=== PATIENT | female | born 1965 | race Caucasian/White ===

== ENCOUNTER 2025-06-30 19:01 | Emergency (ER) | payer OTHER ==
[~2025-06-30] VITALS: Ht 165.1 cm; Wt 75.0 kg
[2025-06-30] MEDS ORDERED: HYDROmorphone HCL 1 MG/ML SYR IV ONE ×2 (19:30→21:15)
[2025-06-30] MEDS ORDERED: HYDROmorphone HCL 1 MG/ML SYR IV PRN (20:30)
[2025-06-30] MEDS ORDERED: ETOMIDATE 40 MG/20 ML VIAL IV ONE ×2 (21:00→21:15)
[2025-06-30] MEDS ORDERED: HYDROmorphone HCL 1 MG/ML SYR ONE (21:11)
[2025-06-30] MEDS ORDERED: HYDROCODON-ACE1 EA10 PO ×2 (22:58)
[2025-06-30] MEDS ORDERED: HYDROCODONE BIT/ACETAMINOPHEN 5/325 MG 1 TAB HOME.PACK PO ONE (23:00)
[2025-06-30 23:15] VITALS: BP 129/65
[2025-06-30] MEDS ORDERED: ONDANSETRON ODT8 MG PO ×2 (23:19)
[2025-06-30] MEDS ORDERED: ONDANSETRON 4 MG HOME.PACK SL ONE (23:30)
[2025-07-03] MEDS ORDERED: PROGESTERONE100 MG PO ×2 (16:25)
[2025-07-03] MEDS ORDERED: ESTRADIOL1 MG PO ×2 (16:25)
[2025-07-03] MEDS ORDERED: AMLODIPINE-OLM1 EAC2 PO ×2 (16:25)
[2025-07-03] MEDS ORDERED: VITAMIN C500 M4 PO ×2 (16:26)
[2025-07-03] MEDS ORDERED: MAGNESIUM500 MG PO ×2 (16:26)
== END 2025-06-30 23:15 | disposition home or self-care (01) ==
LOC: ED 19:01
DX: S92.331A Displaced fracture of third metatarsal bone, right foot, initial encounter for closed fracture (principal); S92.341A Displaced fracture of fourth metatarsal bone, right foot, initial encounter for closed fracture; S93.124A Dislocation of metatarsophalangeal joint of right lesser toe(s), initial encounter; I10 Essential (primary) hypertension; Z88.5 Allergy status to narcotic agent; W55.12XA Struck by horse, initial encounter
CPT/HCPCS: 28630; 73610; 73630; 73700; 96374; 96375; 96376; 99284-25; A9270; J1171; J2405

== ENCOUNTER 2025-07-05 05:40 | Day surgery (SDC) | payer OTHER ==
[~2025-07-05] VITALS: Ht 165.1 cm; Wt 74.0 kg
--- NOTE | ~2025-07-05 | OR ---
[facility] [address] [place] [address] [place] DATE OF OPERATION: 07/05/2025 SURGEON: Jade Gregory MD PREOPERATIVE DIAGNOSIS: Metatarsophalangeal dislocation second right toe. POSTOPERATIVE DIAGNOSIS: Metatarsophalangeal dislocation second right toe. PROCEDURE PERFORMED: Open reduction, pinning, right second metatarsophalangeal. DIAL MOUNTER: None. ANESTHESIA: General. BLOOD LOSS: Minimal. IMPLANTS: One 1.6 mm K-wire was used. BRIEF HISTORY: Derek is a 59-year-old female who was stepped on by a horse. Dislocated her second MTP joint, fractured the third and fourth metatarsals. Risks and benefits of closed reduction, possible open reduction of the joint were discussed with her after multiple attempts in the ER failed. She understood and wished to proceed. DESCRIPTION OF PROCEDURE: Once consent was obtained, she was taken to the operating room. After adequate anesthesia she was placed on OR table. Multiple attempted closed reductions were made. The proximal phalanx continued to be subluxed dorsally and laterally. At this point, we went ahead and prepped and draped the leg up to a proximal thigh tourniquet. The leg was then exsanguinated using Esmarch bandage. Tourniquet inflated to 250 mmHg. A 2 cm dorsal incision to the MTP joint was taken through skin and subcutaneous tissue. The extensor tendon was carefully retracted and protected. The dorsal capsule was opened and the joint was inspected. There was a small amount of soft tissue laterally however PATIENT NAME: DEREK FISHER OPERATIVE REPORT DATE OF : 69 REPORT #: [id number] PHYSICIAN: JADE GREGORY MD PCP: NO PRIMARY CARE PHYSICIAN REPORT IS CONFIDENTIAL AND NOT TO BE RELEASED WITHOUT AUTHORIZATION [facility] [address] [place], [place] [address] [place] we opened and reduced into position with the [place] elevator. Continued to want to ride laterally and dorsally, so we held it in position and introduced 1.6 K-wire to the lateral side of the proximal phalanx advanced across the joint, holding the MTP joint in a reduced position. The K-wire was cut and bent. The wound was copiously irrigated with normal saline. The dorsal capsule was closed using 3-0 Monocryl. Subcutaneous tissue with 3-0 Monocryl and the skin with 3-0 Stratafix. Wound was sealed with LiquiBand and Steri-Strips. A digital block was then performed. Once this was completed the wound was dressed with Allevyn, gauze and an PENELOPE wrap. She was placed back into a fracture boot. She tolerated the procedure well. All sponge, needle, and instrument counts were correct. Jade Gregory MD BA/DEBRAL /[id number] Copies: ~ PATIENT NAME: DEREK FISHER OPERATIVE REPORT DATE OF : 69 REPORT #: [id number] PHYSICIAN: JADE GREGORY MD PCP: NO PRIMARY CARE PHYSICIAN REPORT IS CONFIDENTIAL AND NOT TO BE RELEASED WITHOUT AUTHORIZATION
[~2025-07-05 05:40] MED LIST: AMLODIPINE-OLM1 EAC2 PO; ESTRADIOL1 MG PO; HYDROCODON-ACE1 EA10 PO; LACTATED RINGER'S 1,000 ML IV SCH; MAGNESIUM500 MG PO; ONDANSETRON ODT8 MG PO; PROGESTERONE100 MG PO; VITAMIN C500 M4 PO
[2025-07-05 06:04] VITALS: BP 127/76
[2025-07-05] MEDS ORDERED: LIDOCAINE HCL 1% 5 ML SDV INJ ONE (07:00)
[2025-07-05] MEDS ORDERED: IBLOOD GLUCOSE TEST STRIP 1 EA TEST VI PRN ×2 (07:00→08:30)
[2025-07-05] MEDS ORDERED: CEFAZOLIN SODIUM 2 GM in SODIUM CHLORIDE 0.9% 100 ML IV SCH (07:00)
[2025-07-05] MEDS ORDERED: LIDOCAINE HCL 2% 5 ML SDV ONE (07:17)
[2025-07-05] MEDS ORDERED: fentaNYL citrate 100 MCG/2 ML VIAL ONE (07:42)
[2025-07-05] MEDS ORDERED: HYDROCODONE/ACETA 7.5/325 TAB PO PRN (08:00)
[2025-07-05] MEDS ORDERED: DEXAMETHASONE SOD PHOS 4 MG/ML VIAL ONE (08:13)
[2025-07-05] MEDS ORDERED: ACETAMINOPHEN 1,000 MG/100 ML VIAL ONE (08:23)
[2025-07-05] MEDS ORDERED: METOCLOPRAMIDE HCL 10 MG/2 ML SDV IV PRN (08:30)
[2025-07-05] MEDS ORDERED: fentaNYL citrate 50 MCG/ML SDV IV PRN (08:30)
[2025-07-05] MEDS ORDERED: MIDAZOLAM HCL 2 MG/2 ML VIAL IV PRN (08:30)
[2025-07-05] MEDS ORDERED: MORPHINE SULFATE 10 MG/ML VIAL IV PRN (08:30)
[2025-07-05] MEDS ORDERED: NALOXONE HCL 0.4 MG SYR IV PRN (08:30)
[2025-07-05] MEDS ORDERED: GLYCOPYRROLATE 1 MG/5 ML MDV ONE (08:34)
[2025-07-05] MEDS ORDERED: BUPIVACAINE HCL 0.25% 50 ML MDV ONE (08:45)
--- NOTE | 2025-07-05 08:51 | NUR ---
VISITED DURING SPIRITUAL CARE ROUNDS. PT STATED NERVOUS BUT APPEARS TO BE COPING WELL; SUPPORTED BY MOTHER IN ROOM. NO IMMEDIATE NEEDS. GROUP WORK PROGRAM DIRECTOR PROVIDED SUPPORTIVE PRESENCE, HOSPITALITY, PRAYER. PT AND MOTHER EXPRESSED GRATITUDE.
[2025-07-05] MEDS ORDERED: HYDROCODON-ACE1 EA11 PO ×2 (09:00)
--- NOTE | 2025-07-05 09:10 | NUR ---
07/05/25 0910 Lianna Olivera LE 0900: PT ARRIVES TO PACU WITH ORAL AIRWAY IN PLACE. REPROT RECEIVED FROM HANSARD REPORTER AND JIG MAKER. 2ND RIGTH TOE IS WHITE, NO CAP REFILL, WARM TO TOUCH. IT IS WAS UNDER PRESSURE, ADJUSTED THE TOE AND IT PINKED RIGHT UP WITH BRISK CAP REFILL. DR. SANDOVAL MADE AWARE. LE 0906: PT AROUSES, ORAL AIRWAY IS REMOVED. SHE DENIES PAIN AND NAUSEA.
[2025-07-05 09:31] VITALS: BP 169/89
[2025-07-05] MEDS ORDERED: SEVOFLURANE 250 ML BTL INH ONE (10:02)
[2025-07-05 10:36] VITALS: BP 129/74
[2025-07-05 11:32] VITALS: BP 129/67
--- NOTE | 2025-07-05 12:13 | NUR ---
ARJUN 0929-PT BACK TO ROOM FROM PACU ON RA. RECEIVED REPORT FROM GINI FERRERA. PT IS AWAKE. RESP EVEN AND UNLABORED. PT IS TEARY. PT STATES RIGHT FOOT IS ACHY AND FEELS PRESSURE. PT TAKING SIPS OF WATER. DECLINES A SNACK AT THIS TIME. NO OTHER NEEDS AT THIS TIME. MOM AT BEDSIDE. CALL LIGHT WITHIN REACH.
--- NOTE | 2025-07-05 12:14 | NUR ---
LE 1037-PT IS AWAKE. RESP EVEN AND UNLABORED. PT IS NO LONGER TEARY. PT STATES RT FOOT IS ACHY AND FEELS PRESSURE. PT TAKING SIPS OF WATER. LE 1045-PT UP TO BEDSIDE COMMODE WITH THE HELP OF 2 RN ASSIT. PT ABLE TO VOID. LE 1050-PT BACK TO BED. NO OTHER NEEDS AT THIS TIME. CALL LIGHT WITHIN REACH. MOM AT BEDSIDE.
--- NOTE | 2025-07-05 12:25 | NUR ---
LE 1132-PT IS AWAKE. RESP EVEN AND UNLABORED. PT HAS FOOT ELEVATED WITH PILLOW AND ICE PACK IN PLACE. PT TAKING SIPS OF WATER AND EATING APPLESAUCE. PT IS READY TO GO HOME. PT WILL STARTE GETTING DRESSED WITH THE HELP OF HER MOM. CALL LIGHT WITHIN REACH.
--- NOTE | 2025-07-05 12:28 | NUR ---
ARJUN 1150-WENT OVER DISCHARGE INSTRUCTIONS WITH PT AND HER MOM. WENT OVER POSTOP MEDICATIONS. ALL QUESTIONS ANSWERED. PT WILL USE A SCOOTER WHILE SHE STAYS IN [place]. HER MOM HAS CALLED [employer] AND WILL GO PICK ONE UP. PT PLANS TO FOLLOW WITH HER DR IN [place] ON 07/13/25 AT 1100. BOTH OFFICES WILL BE COMMUNICATING RE FOLLOWUP CARE PER PT.
== END 2025-07-05 11:55 | disposition home or self-care (01) ==
LOC: DS 05:40
PROVIDERS: ATTEND Specialist
PROC: 0SSM04Z Reposition Right Metatarsal-Phalangeal Joint with Internal Fixation Device, Open Approach (ICD-10-PCS; principal; 2025-07-05 07:00)
PROC: 3E0T3BZ Introduction of Anesthetic Agent into Peripheral Nerves and Plexi, Percutaneous Approach (ICD-10-PCS; 2025-07-05 07:00)
DX: S93.124A Dislocation of metatarsophalangeal joint of right lesser toe(s), initial encounter (principal); S92.331A Displaced fracture of third metatarsal bone, right foot, initial encounter for closed fracture; S92.341A Displaced fracture of fourth metatarsal bone, right foot, initial encounter for closed fracture; W55.12XA Struck by horse, initial encounter
CPT/HCPCS: 01480; 64447; 73660; J0131; J0688; J1100; J1171; J2003; J2405; J2704; J3010; J7121